=== PATIENT | female | born 1965 | race Caucasian/White ===

== ENCOUNTER 2020-05-06 00:22 | Emergency (ER) | payer OTHER ==
--- NOTE | 2020-05-06 00:50 | PDOC ---
History of Present Illness - General Stated Complaint: EAR PROBLEM Time Seen by Provider: 05/06/20 00:42 History Source: Patient Exam Limitations: No Limitations - History of Present Illness Initial Comments: 05/06/20 00:47 54-year-old female no past medical history presenting to the ED with 1 day of increased ear pain bilaterally. Patient states that she sees ENT regularly for sinus congestion and ear pain. Patient states that today her ear pressure became worse and feels like she is underwater. Patient denies any fever chills discharge from the ear hearing changes vertigo or dizziness. Rest of ROS negative Past History - Medical History Allergies/Adverse Reactions: Allergies Allergy/AdvReac Type Severity Reaction Status Date / Time Penicillins Allergy Verified 04/08/16 15:37 Home Medications: Ambulatory Orders Olmesartan/Hydrochlorothiazide [Benicar Hct 20-12.5 mg Tablet] 1 each PO DAILY 04/07/13 HTN: Yes - Psycho-Social/Smoking History Smoking Status: No Smoking History: Never smoked Number of Cigarettes Smoked Daily: 0 *Physical Exam - Physical Exam 05/06/20 00:48 Gen: AAOx 3, no acute distress, comfortable, no signs of respiratory distress HENT: atraumatic, normocephalic with no laceration or contusion. Nasal mucosa without erythema. Oropharynx without erythema or exudates. Mucous membranes moist. Bilateral TMs with cone of light nonbulging EYES: PERRL, EOM intact, conjunctiva pink CV: RRR no murmurs, gallops, or rubs. CHEST: CTA b/l no wheezing, rales or rhonchi ABD: +BS/ND. no TTP; soft, no rebound, no guarding NEURO: normal speech, CN II-XII intact, sensation intact, normal gait, no cerebellar deficits MS: 5/5 strength in all extremities, FROM intact in all extremities. Medical Decision Making - Medical Decision Making 05/06/20 00:48 54-year-old female with bilateral ear pressure Benign physical exam Vital signs stable No acute intervention warranted in the ED I told patient to take ibuprofen Flonase and low-dose Sudafed for symptomatic relief and to follow-up with her ENT without fail Pt appears well and is safe and stable for discharge with strict return precautions including signs and symptoms requring immediate return to the ED Supportive care instructions explained and given to pt. Reasons to return emergently to ER explained and given. Importance of follow up with PMD and other specialists as indicated stressed to pt. Pt verbalized understanding of instructions. Pt to follow up with PMD in 2 days. Discharge - Discharge Information Problems reviewed: Yes Clinical Impression/Diagnosis: Chronic ear pain Qualifiers: Laterality: bilateral Qualified Code(s): H92.03 - Otalgia, bilateral Condition: Stable Disposition: HOME - Follow up/Referral - Patient Discharge Instructions Patient Printed Discharge Instructions: DI for Ear Pain-Adult - Post Discharge Activity
--- OUTSIDE RECORDS SUMMARY | 2020-05-06 00:50 | XMS ---
:1965 Author Organization [facility] Support Name Relationship Address Phone YOBE Unavailable [address] [place] [address] [address]HELLE BARAJAS [address] [place] [address] Re-disclosure Warning The records that you are about to access may contain information from federally- assisted alcohol or drug abuse programs. If such information is present, then the following federally mandated warning applies: This information has been disclosed to you from records protected by federal confidentiality rules (42 CFR part 2). The federal rules prohibit you from making any further disclosure of this information unless further disclosure is expressly permitted by the written consent of the person to whom it pertains or as otherwise permitted by 42 CFR part 2. A general authorization for the release of medical or other information is NOT sufficient for this purpose. The Federal rules restrict any use of the information to criminally investigate or prosecute any alcohol or drug abuse patient.The records that you are about to access may contain highly sensitive health information, the redisclosure of which is protected by Article 27-F of the [facility] Public Health law. If you continue you may haveaccess to information: Regarding HIV / AIDS; Provided by facilities licensed or operated by the [facility] Office of Mental Health; or Provided by the [facility] Office for People With Developmental Disabilities. If such information is present, then the following [facility] mandated warning applies: This information has been disclosed to you from confidential records which are protected by state law. State law prohibits you from making any further disclosure of this information without the specific written consent of the person to whom it pertains, or as otherwise permitted by law. Any unauthorized further disclosure in violation of state law may result in a fine or senior living sentence or both. A general authorization for the release of medical or other information is NOT sufficient authorization for further disclosure. Insurance Providers Payer name Policy type Policy ID Covered Covered democrat's Policy P fazal / Coverage democrat ID relationship to [employer] ormation type [employer] [place] [id number] HEALTH CARE HMO/POS/EPO Results ID Date Data Source [id number] 11/07/2019 12:00:00 AM EDT [place] Name Value Range Interpretation Code Description Data [place] rce(s) Supporting Document(s ) 2019-nCoV [facility] RNA XXX DERIC+probe- Imp This lab [facility] and reported by [employer] Procedure
[2020-05-06 00:51] VITALS: BP 133/78; PULSE 60; TEMP 97.1; BMI 27.3
== END 2020-05-06 01:23 | disposition home or self-care (01) ==
LOC: JER 00:22
DX: H92.03 Otalgia, bilateral (principal)
CPT/HCPCS: 99283-25

== ENCOUNTER 2021-12-28 09:49 | Emergency (ER) | payer BC, OTHER ==
[2021-12-28 09:54] VITALS: BP 115/50; PULSE 70; TEMP 97.9; BMI 27.3
[2021-12-28] MEDS ORDERED: KETOROLAC TROMETHAMINE 30 MG/1 ML VIAL IM ONE (10:43)
[2021-12-28] MEDS ORDERED: KETOROLAC TROMETHAMINE 30 MG/1 ML VIAL ONE (10:47)
== END 2021-12-28 10:52 | disposition home or self-care (01) ==
LOC: JERFT 09:49
PROC: 3E0233Z Introduction of Anti-inflammatory into Muscle, Percutaneous Approach (ICD-10-PCS; principal; 2021-12-28)
DX: M54.12 Radiculopathy, cervical region (principal)
CPT/HCPCS: 99284-25